=== PATIENT | male | born 1975 | race Caucasian/White ===

== ENCOUNTER 2018-07-04 06:24 | Day surgery (SDC) | payer BC ==
[2018-07-02 14:33] VITALS: BMI 30.1
[~2018-07-04 06:24] MED LIST: DEXAMETHASONE SOD PHOSPHATE 10 MG/ML 1 ML VIAL IV ONE; HEPARIN SODIUM,PORCINE 5,000 UNIT/ML 1 ML VIAL SQ ONE; HYDROmorphone 1 MG/ML 1 ML SYRINGE IVP PRN; LACTATED RINGERS 1,000 ML IV SCH; LIDOCAINE 1% 20 ML VIAL (10MG/ML) FOR IV START INTRADERMA PRN; ONDANSETRON 4 MG/2 ML VIAL IVP ONE; SCOPOLAMINE 1.5MG/72HR PATCH TRANSDERM ONE; ceFAZolin IN SWFI 2 GM/20 ML SYRINGE IVP ONE
[2018-07-04] MEDS ORDERED: MIDAZOLAM 2 MG/2 ML VIAL IV ONE (07:21)
[2018-07-04] MEDS ORDERED: MIDAZOLAM 2 MG/2 ML VIAL ONE ×2 (07:32→11:07)
[2018-07-04] MEDS ORDERED: KETOROLAC 30 MG/ML 1 ML VIAL ONE (07:32)
[2018-07-04] MEDS ORDERED: ROPIVACAINE 5 MG/ML 30 ML VIAL ONE (07:32)
[2018-07-04] MEDS ORDERED: SUCCINYLCHOLINE CHLORIDE 100 MG/5 ML SYR IV ONE ×2 (07:32→11:07)
[2018-07-04] MEDS ORDERED: GLYCOPYRROLATE 0.2 MG/ML 2 ML VIAL ONE ×2 (07:32→11:07)
[2018-07-04] MEDS ORDERED: PROPOFOL 10 MG/ML 20 ML VIAL IV ONE ×2 (07:32→11:07)
[2018-07-04] MEDS ORDERED: LIDOCAINE 2%-EPI 1:100,000 20 ML VIAL ONE (07:32)
[2018-07-04] MEDS ORDERED: LIDOCAINE 1% INJ 10MG/ML (20 ML MDV) ONE ×2 (07:32→11:07)
[2018-07-04] MEDS ORDERED: NEOSTIGMINE 1 MG/ML 10 ML VIAL ONE ×2 (07:32→11:07)
[2018-07-04] MEDS ORDERED: ROCURONIUM BROMIDE 10 MG/ML 10 ML VIAL IV ONE ×2 (07:32→11:07)
[2018-07-04] MEDS ORDERED: fentaNYL (PF) 50 MCG/ML 2 ML AMP ONE ×3 (07:32→11:07)
[2018-07-04 07:39] VITALS: RESP 16
--- NOTE | 2018-07-04 07:39 | P.GSHP ---
History of Present Illness H&P Date: 07/04/18 Chief Complaint: Left inguinal hernia Patient known to our service from a visit in March. Patient has complaints of pain left groin. He feels a bulge there. More discomfort when he is lifting and straining. Does not feel any symptoms on the right-hand side. No history of previous hernia repair. Past Medical History Past Medical History: Hyperlipidemia Additional Past Medical History / Comment(s): left inguinal hernia,chronic neck and back,states "b/p sometimes goes high but never have I had treatment for it. ",chronic bonchitis as a teenager History of Any Multi-Drug Resistant Organisms: None Reported Past Surgical History: No Surgical Hx Reported Past Anesthesia/Blood Transfusion Reactions: No Reported Reaction Additional Past Anesthesia/Blood Transfusion Reaction / Comment(s): never has had general anesthesia and blood transfusion. Smoking Status: Never smoker - Past Family History Mother Family Medical History: Cancer Additional Family Medical History / Comment(s): breast CA Medications and Allergies Home Medications Medication Instructions Recorded Confirmed Type Atorvastatin [Lipitor] 10 mg PO DAILY 07/02/18 07/02/18 History Cyclobenzaprine HCl 10 mg PO HS 07/02/18 07/02/18 History Diclofenac Sodium [Voltaren] 75 mg PO BID 07/02/18 07/02/18 History Allergies Allergy/AdvReac Type Severity Reaction Status Date / Time No Known Allergies Allergy Verified 07/04/18 06:48 Surgical - Exam Physical exam: General: Well-developed, well-nourished HEENT: Normocephalic, sclerae nonicteric Abdomen: Nontender, nondistended, reducible left inguinal hernia Extremities: No edema Neuro: Alert and oriented Assessment and Plan (1) Left inguinal hernia Narrative/Plan: Will proceed with laparoscopic left inguinal hernia repair with robotic assistance with mesh, possible bilateral. Risks of bleeding, infection, recurrence, bladder and bowel injury, numbness, nerve injury, conversion to an open procedure were discussed with the patient. The patient understands and wishes to proceed. Current Visit: Yes Status: Acute Code(s): K40.90 - UNIL INGUINAL HERNIA, W/ O OBST OR GANGR, NOT SPCF RECUR SNOMED Code(s): 126086178
[2018-07-04] MEDS ORDERED: BUPIVACAIN-EPI 0.25%-1:200,000 30 ML VIAL SQ ONE (08:04)
[2018-07-04] MEDS ORDERED: LACTATED RINGERS 1,000 ML IV ONE (08:55)
[2018-07-04] MEDS ORDERED: HYDROcodone/APAP 5-325MG 1 EACH TAB PO PRN (09:14)
[2018-07-04] MEDS ORDERED: NALOXONE 0.4 MG/ML 1 ML VIAL IV PRN (09:14)
--- NOTE | 2018-07-04 09:17 | P.OP ---
Date of Procedure: 07/04/18 Procedure(s) Performed: PREOPERATIVE DIAGNOSIS: Left inguinal hernia POSTOPERATIVE DIAGNOSIS: Same PROCEDURE: Laparoscopic repair direct left inguinal hernia with the da Madai robot assistance with mesh SURGEON: Timothy EBL: Minimal ANESTHESIA: General COMPLICATIONS: None OPERATIVE PROCEDURE: Patient was placed in the operating table in the supine position. The patient was placed under general anesthesia. The abdomen was prepped and draped in usual sterile fashion. A small curvilinear supraumbilical incision was made. The fascia was retracted anteriorly with Palmer forceps. The Veress needle was inserted. The saline drop test was normal. Insufflation took place to 15 mmHg. A 5 mm trocar was placed into the peritoneal cavity. This was later switched to a 12 mm trocar. 2 additional 8 mm trochars were placed in the right upper quadrant and left upper quadrant under visualization. The robotic arms were then brought in and docked into place. The fenestrated bipolar was used in the left arm and the laparoscopic migdalia was utilized in the right arm. A 30 12 mm scope was used in the up position. The peritoneal cavity was inspected. Visualization of the peritoneum in the pelvis actually revealed no definite hernia defects. I suspected at that point that we were dealing with a direct hernia on the left side. We did not dissect out the right side. The peritoneum was incised in a horizontal fashion cephalad to the internal inguinal ring on the left side. Following that careful dissection of the preperitoneal space took place. This took place using both electrocautery, sharp dissection but primarily blunt dissection. Visualization of the pubic tubercle and Vernon's ligament took place medially. Full dissection took place laterally as well. The direct hernia sac was fully dissected. Once we had adequate space the 15 x 10 progrip mesh was advanced into the preperitoneal space and flattened out appropriately to cover all potential hernia sites. No sutures were used. The peritoneal defect was then closed using a locking 2-0 VLok suture. I did incorporate the excess preperitoneal fat medially to our peritoneal closure to help reduce risks of recurrence. The pneumoperitoneum was then evacuated. The fascia at the 12 mm site was closed using the Jack Rodriguez technique and an 0 Vicryl stitch. The skin of all 3 sites was closed using a 4-0 Monocryl stitch. Skin glue was then applied. DISPOSITION: Stable to recovery room
[2018-07-04 09:21] VITALS: TEMP 96.9
[2018-07-04 11:06] VITALS: BP 142/90; PULSE 90
--- NOTE | 2018-07-05 12:42 | P.ONQ ---
Anesthesiology Proc Note - PNB - Peripheral Nerve Block Performed Left Transversus Abdominis Single Time Out Performed: Yes Procedure Start Time: Procedure Stop Time: : Indication: Acute Post-Operative Pain, Requested by physician Sedation Type: Sedate with meaningful contact maintained Preparation: Sterile Prep Position: Supine Needle Size: 50mm (2") Needle Gauge: 21 Technique: Ultrasound Injectate: 0.5% Ropivacaine (see comment for volume) (ropi .5% 20cc plus xylo 1 % 20cc) Blood Aspirated: No Pain Paresthesia on Injection Noted: No Resistance on Injection: Normal Events: Uneventful and Well Tolerated
== END 2018-07-04 11:36 | disposition home or self-care (01) ==
LOC: OR 06:24
PROVIDERS: ATTEND Surgery
DX: K40.90 Unilateral inguinal hernia, without obstruction or gangrene, not specified as recurrent (principal); E78.5 Hyperlipidemia, unspecified; M54.2 Cervicalgia; M54.9 Dorsalgia, unspecified; G89.29 Other chronic pain; Z79.899 Other long term (current) drug therapy
CPT/HCPCS: 64486; 49650; C1781; J2250; J1644; J1100; J2710; J2405; J2001; J3010; J1885; J2795; J0330; J2704; J0690

== ENCOUNTER → 2023-07-03 | Outpatient (CLI) | payer BC ==
--- NOTE | 2023-07-04 18:25 | MR ---
EXAMINATION TYPE: MR cervical spine wo con DATE OF EXAM: 07/03/2023 7:12 PM CLINICAL INDICATION:Male, 48 years old with history of M54.12; PHH, Neck stiffness, Numbness into le ft arm x8-10 months COMPARISON: None. TECHNIQUE: Multi planar, multi sequence imaging was performed utilizing: T1-weighted, T2-weighted, an d turbo inversion recovery imaging of the cervical spine. IV Contrast: cc (none if empty) FINDINGS: Alignment: The cervical vertebral bodies have preserved heights. Alignment is within normal limits gi inga patient positioning. Bones: Bone signal is within normal limits. No abnormal bone marrow edema on inversion recovery seque nces. Cord: The spinal cord is unremarkable with regards to their signal intensity and morphology. Discs: Intervertebral disc signal is maintained. C2-C3: No significant disc pathology. The spinal canal is patent. Bilateral facet and uncovertebral joint arthropathy are present with mild bilateral neural foraminal stenosis. C3-C4: No significant disc pathology. The spinal canal is patent. Bilateral facet and uncovertebral joint arthropathy are present with mild bilateral neural foraminal stenosis. C4-C5: No significant disc pathology. The spinal canal is patent. Bilateral facet and uncovertebral joint arthropathy are present with moderate to severe left and mild right neural foraminal stenosis. C5-C6: A disc osteophyte complex is present with mild spinal canal stenosis. Bilateral facet and unc overtebral joint arthropathy are present with moderate to severe bilateral neural foraminal stenosis. C6-C7: A disc osteophyte complex is present with mild spinal canal stenosis. Bilateral facet and unc overtebral joint arthropathy are present with mild to moderate bilateral neural foraminal stenosis. C7-T1: No significant disc pathology. The spinal canal is patent. No neural foraminal stenosis. Other: None. IMPRESSION: 1. No evidence for disc herniation or significant spinal canal stenosis. 2. Multilevel disc degeneration with associated osteoarthritic changes with multilevel moderate to se poncho neural foraminal stenosis at C4-C5 on the left and bilateral C5-C6.
== END | disposition home or self-care (01) ==
LOC: RADMRIMAIN 18:12
PROVIDERS: ATTEND Family Medicine
DX: M99.71 Connective tissue and disc stenosis of intervertebral foramina of cervical region (principal); M47.22 Other spondylosis with radiculopathy, cervical region; M50.10 Cervical disc disorder with radiculopathy, unspecified cervical region; R20.0 Anesthesia of skin
CPT/HCPCS: 72141

== ENCOUNTER → 2024-09-27 | Outpatient (CLI) | payer BC ==
--- NOTE | 2024-09-27 09:44 | US ---
EXAMINATION TYPE: US abdomen limited DATE OF EXAM: 09/27/2024 COMPARISON: NONE CLINICAL INDICATION: Male, 49 years old with history of R19.00 INTRA-ABD AND PELVIC SWELLING, MASS AN D LUM; RUQ lump TECHNIQUE: Multiple grayscale and color Doppler ultrasound images of the right upper quadrant abdomi nal wall at the patient's region of palpable abnormality were obtained. FINDINGS/IMPRESSION: There is an ill-defined slightly heterogenous lesion within the right upper quad rant abdominal wall subcutaneous tissues measuring 1.4 x 0.9 x 1.3 cm. This demonstrates some interna l striations. No internal color flow. 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 Correlate clinically. Th is can be further evaluated with CT as clinically indicated. [facility], , 09/27/2024 9:41 AM
== END | disposition home or self-care (01) ==
LOC: RADUSWWP 09:17
PROVIDERS: ATTEND Family Medicine
DX: R19.00 Intra-abdominal and pelvic swelling, mass and lump, unspecified site (principal)
CPT/HCPCS: 76705